=== PATIENT | female | born 1960 | race Hispanic/Latino ===

== ENCOUNTER → 2017-08-22 | Outpatient (CLI) | payer BC ==
[~2017-08-22] MED LIST: ASPIR 8181 MG PO; BUMETANIDE1 MG PO; CARVEDILOL3.125 MG PO; CRESTOR10 MG PO; FARXIGA PO; JANUMET 50-1,01 EACH PO; NOVOLOG100 UNIT/1 SC; PLAVIX75 MG PO; PRISTIQ ER50 MG PO
--- NOTE | 2017-08-22 11:48 | Diagnostic Imaging Report ---
PROCEDURE:ABDOMINAL ULTRASOUND COMPARISON:None. INDICATIONS:Nausea FINDINGS: Liver: 13.1 cm in length in the right midclavicular line. Normal hepatic parenchymal echogenicity. No focal mass. Main portal vein: 0.7 cm in caliber. Hepatopedal flow. Gallbladder: No shadowing calculus, echogenic sludge, wall thickening, or pericholecystic fluid. Common Bile Duct: 0.3 cm in caliber. No echogenic filling defect. Sonographic Santoro's sign: Reported as negative. Right kidney: 11 cm in length the No solid mass, echogenic calculi, or hydronephrosis. 1.5 cm simple cyst in the upper pole. No internal vascularity, solid component, or septation. Normal renal cortical echogenicity. Left kidney: 11.6 in meters in length. No solid or cystic mass, echogenic calculi, or hydronephrosis. Normal renal cortical echogenicity. Spleen: Informed parenchymal echotexture. 6.6 cm in length. Pancreas: The visualized portions of the pancreas are normal. Inferior vena cava: Patent. Aorta: Non-aneurysmal. Ascites: None. CONCLUSION: Simple cyst in the upper pole of the right kidney. Otherwise unremarkable abdominal ultrasound. Dictated by: Mickey Tobin M.D. on 08/22/2017 at 11:50 Electronically approved by: Mickey Tobin M.D. on 08/22/2017 at 11:50
== END ==
LOC: US 10:08
PROVIDERS: ATTEND Internal Medicine Gastroenterology
DX: R11.0 Nausea (principal)
CPT/HCPCS: 76700

== ENCOUNTER → 2017-08-23 | Day surgery (SDC) | payer BC ==
[~2017-08-23] MED LIST changes: +LIDOCAINE HCL 2% LOCAL INJ 5 ML SDV VIAL INJ ONE; +MIDAZOLAM HCL 2 MG/2 ML VIAL ONE; +PROPOFOL IV EMULSION 10 MG/ML 50 ML VIAL ONE
--- OUTSIDE RECORDS SUMMARY | 2017-08-23 07:47 | XMS REPORT ---
[facility] Address Unknown Phone Unavailable Care Team Providers Care Privacy Compliance Manager Name Role Phone FRANCES FOSTER Unavailable Unavailable Problems This patient has no known problems. Allergies, Adverse Reactions, Alerts This patient has no known allergies or adverse reactions. Medications This patient has no known medications. Results Test Description Test Time Test Comments Text Results Atomic Results Result Comments US ABDOMEN COMPLETE [place] [address] Patient Name: AIDEE CHATTERJEE MR #: [id number] : 1960 Age/Sex: 57/F Req #: [id number] Adm Physician: Ordered by: FRANCES FOSTER MD Report #: [id number] Location: US Room/Bed: Procedure: [id number] US/US ABDOMEN COMPLETE Exam Date: 08/22/17 Exam Time: 1025 REPORT STATUS: Signed PROCEDURE: ABDOMINAL ULTRASOUND COMPARISON: None. INDICATIONS: Nausea FINDINGS: Liver: 13.1 cm in length in the right midclavicular line. Normal hepatic parenchymal echogenicity. No focal mass. Main portal vein: 0.7 cm in caliber. Hepatopedal flow. Gallbladder: No shadowing calculus, echogenic sludge, wall thickening, or pericholecystic fluid. Common Bile Duct: 0.3 cm in caliber. No echogenic filling defect. Sonographic Santoro's sign: Reported as negative. Right kidney: 11 cm in length the No solid mass, echogenic calculi, or hydronephrosis. 1.5 cm simple cyst in the upper pole. No internal vascularity, solid component, or septation. Normal renal cortical echogenicity. Left kidney: 11.6 in meters in length. No solid or cystic mass, echogenic calculi, or hydronephrosis. Normal renal cortical echogenicity. Spleen: Informed parenchymal echotexture. 6.6 cm in length. Pancreas: The visualized portions of the pancreas are normal. Inferior vena cava: Patent. Aorta: Non-aneurysmal. Ascites: None. CONCLUSION: Simple cyst in the upper pole of the right kidney. Otherwise unremarkable abdominal ultrasound. Dictated by: Gerson Lopez M.D. on 08/22/2017 at 11:50 Electronically approved by: Gerson Lopez M.D. on 08/22/2017 at 11:50 Dictated By: GERSON LOPEZ MD 1150 Transcribed By: ARMOND on 08/22/17 1150 COPY TO: FRANCES FOSTER MD
== END | disposition home or self-care (01) ==
LOC: OR 07:44
PROVIDERS: ATTEND Internal Medicine Gastroenterology
DX: K29.50 Unspecified chronic gastritis without bleeding (principal); K21.9 Gastro-esophageal reflux disease without esophagitis; K44.9 Diaphragmatic hernia without obstruction or gangrene; R19.7 Diarrhea, unspecified; E11.9 Type 2 diabetes mellitus without complications; I10 Essential (primary) hypertension; I25.10 Atherosclerotic heart disease of native coronary artery without angina pectoris; N39.0 Urinary tract infection, site not specified; F41.9 Anxiety disorder, unspecified; F32.9 Major depressive disorder, single episode, unspecified; Z79.01 Long term (current) use of anticoagulants; Z79.02 Long term (current) use of antithrombotics/antiplatelets; Z79.4 Long term (current) use of insulin; Z79.82 Long term (current) use of aspirin; Z95.810 Presence of automatic (implantable) cardiac defibrillator
CPT/HCPCS: 36415; 43239; 82948; J2001; J2250